=== PATIENT | female | born 1975 | race Caucasian/White ===

== ENCOUNTER 2017-02-14 06:33 | Outpatient (CLI) | payer BC ==
[2017-02-14] VITALS (13 sets, daily range): BP systolic 99–188; BP diastolic 44–66; BMI 26.4
[2017-02-14 07:09] LABS: BASOPHILS 0.4 % (0-2); EOSINOPHILS 0.9 % (0-7); HEMATOCRIT 24.5 % (36.0-48.0); HEMOGLOBIN 8.3 g/dL (12-16); IMMATURE GRANULOCYTES 0.3 % (0-5); LYMPHOCYTES 22.1 % (15-50); MCH 30.2 pg (26.0-34.0); MCHC 33.9 g/dL (31.0-37.0); MCV 89.1 fL (80.0-100.0); MEAN PLATELET VOLUME 10.1 fL (7.4-10.4); MONOCYTES 4.3 % (2-11); PLATELET COUNT 216 10x3/uL (130-400); RBC 2.75 10x6/uL (4.00-5.40); RDW 13.1 % (11.5-14.5); WBC 6.8 10x3/uL (4.8-10.8)
[2017-02-14 07:19] LABS: APTT 31.4 SECONDS (22.8-39.4); INR 0.97 (0.85-1.17); PROTIME 12.7 SECONDS (11.6-15.0)
[2017-02-14 07:20] LABS: ANION GAP 16.3 mmol/L (8-16); CALCIUM 9.1 mg/dL (8.5-10.1); CARBON DIOXIDE 17.7 mmol/L (21.0-32.0)
[2017-02-14] MEDS ORDERED: SODIUM BICARBO325 MG PO (08:27)
[2017-02-14 08:40] LABS: HCG URINE NEGATIVE (NEGATIVE)
--- NOTE | 2017-02-14 10:15 | NUR ---
PT RECEIVED TO ROOM FROM PROCEDURE. RR EVEN AND UNLABORED, PT ALERT AND ORIENTED. VSS, PLACED ON FREQUENT VS. RIGHT SIDE DRESSING CDI. PT REQUESTING TO HAVE SOMETHING TO DRINK. WILL GIVE AND CTM. FAMILY AT BEDSIDE.
--- NOTE | 2017-02-14 10:38 | NUR ---
EDUCATED PT ON USING HAT EVERY TIME SHE VOIDS AND CALLING ME WHEN SHE DOES. EXPLAINED THAT WE NEED A SAMPLE FROM EACH VOID. PT VERBALIZED UNDERSTANDING.
--- NOTE | 2017-02-14 11:15 | NUR ---
PTS VS HAVE REMAINED STABLE SINCE PROCEDURE. RR EVEN AND UNLABORED. DRESSING CITE CDI.
[2017-02-14 11:41] LABS: BASOPHILS 0.3 % (0-2); EOSINOPHILS 0.9 % (0-7); HEMATOCRIT 23.3 % (36.0-48.0); HEMOGLOBIN 7.9 g/dL (12-16); IMMATURE GRANULOCYTES 0.1 % (0-5); LYMPHOCYTES 27.1 % (15-50); MCH 30.3 pg (26.0-34.0); MCHC 33.9 g/dL (31.0-37.0); MCV 89.3 fL (80.0-100.0); MEAN PLATELET VOLUME 10.3 fL (7.4-10.4); NEUTROPHILS 67.6 % (40-80); PLATELET COUNT 202 10x3/uL (130-400); RBC 2.61 10x6/uL (4.00-5.40); WBC 6.8 10x3/uL (4.8-10.8)
--- NOTE | 2017-02-14 16:30 | NUR ---
PTS FREQUENT VS COMPLETE. DRESSING REMAINED CDI AND VSS. PT DENIES PAIN AT SITE, REPORTING "IT ONLY HURTS WHEN I LAUGH." WILL CTM.
[2017-02-14 16:52] LABS: BASOPHILS 0.5 % (0-2); HEMATOCRIT 23.1 % (36.0-48.0); HEMOGLOBIN 7.7 g/dL (12-16); IMMATURE GRANULOCYTES 0.2 % (0-5); LYMPHOCYTES 32.7 % (15-50); MCH 30.2 pg (26.0-34.0); MCHC 33.3 g/dL (31.0-37.0); MCV 90.6 fL (80.0-100.0); MEAN PLATELET VOLUME 10.2 fL (7.4-10.4); MONOCYTES 5.4 % (2-11); NEUTROPHILS 60.2 % (40-80); PLATELET COUNT 198 10x3/uL (130-400); RBC 2.55 10x6/uL (4.00-5.40); RDW 13.1 % (11.5-14.5); WBC 5.9 10x3/uL (4.8-10.8)
--- NOTE | 2017-02-14 18:30 | NUR ---
PT RESTING QUIELTY, RR EVEN AND UNLABORED. FAMILY AT BEDSIDE, WILL GIVE REPORT ON PT CONDTION FOR THE DAY.
--- NOTE | 2017-02-14 19:56 | NUR ---
PT IN BED RESTING QUIETLY. DENIES ANY PAIN OR NEEDS AT THIS TIME. DRSG ON R FLANK CLEAN AND DRY. BED IN LOW POSITION, CALL LIGHT WITHIN REACH. WILL CTM.
[2017-02-14 22:44] LABS: BASOPHILS 0.3 % (0-2); HEMATOCRIT 21.2 % (36.0-48.0); IMMATURE GRANULOCYTES 0.2 % (0-5); LYMPHOCYTES 40.7 % (15-50); MCH 30.4 pg (26.0-34.0); MCV 89.5 fL (80.0-100.0); MEAN PLATELET VOLUME 9.2 fL (7.4-10.4); MONOCYTES 4.8 % (2-11); PLATELET COUNT 174 10x3/uL (130-400); RBC 2.37 10x6/uL (4.00-5.40); RDW 13.3 % (11.5-14.5)
[2017-02-14 22:48] LABS: HEMOGLOBIN 7.2 g/dL (12-16)
--- NOTE | 2017-02-14 23:24 | NUR ---
RCVD CALL FROM LAB THAT PT HAD CRITICAL HGB LEVEL OF 7.2. CALLED AND SPOKE WITH NURSE PRACTITIONER ALLAN. SHE STATED TO GET A TYPE AND CROSS AND INFUSE ONE UNIT.
[2017-02-15] VITALS: BP 123/59
--- NOTE | 2017-02-15 01:45 | NUR ---
STARTED PRBC. INFUSING AT 100ML/HR. VSS. WILL CTM.
--- NOTE | 2017-02-15 01:50 | NUR ---
STARTING INFUSING PRBC. PT STATED HER IV WAS BURNING. REMOVED IV AND RESITED TO RIGHT WRIST. 20G. ONE ATTEMPT. PRBC INFUSING NOW. PT DENIES ANY BURNING OR PAIN. WILL CTM.
--- NOTE | 2017-02-15 03:10 | NUR ---
PRBC INFUSING. TURNED UP TO 125 ML/HR. PT BREATHING EVEN AND UNLABORED. DENIES ANY PAIN OR NEEDS AT THIS TIME. VSS. BED IN LOW POSITION, CALL LIGHT WITHIN REACH. WILL CTM.
[2017-02-15 04:00] VITALS: BP 105/58
--- NOTE | 2017-02-15 04:13 | NUR ---
PT IN BED RESTING QUIETLY. PRBC INFUSING AT 125 ML/HR. BREATHING EVEN AND UNLABORED. DENIES ANY PAIN OR NEEDS AT THIS TIME. BED IN LOW POSITION, CALL LIGHT WITHIN REACH.
--- NOTE | 2017-02-15 04:30 | NUR ---
PRBC DONE IN FUSING. PT BREATHING EVEN AND UNLABORED. SALINE LOCKED. DENIES ANY PAIN OR DISCOMFORT. BED IN LOW POSITION, CALL LIGHT WITHIN REACH. WILL CPOC.
[2017-02-15 05:09] LABS: BASOPHILS 0.3 % (0-2); EOSINOPHILS 0.7 % (0-7); HEMATOCRIT 24.4 % (36.0-48.0); HEMOGLOBIN 8.3 g/dL (12-16); IMMATURE GRANULOCYTES 0.1 % (0-5); LYMPHOCYTES 23.2 % (15-50); MCH 30.3 pg (26.0-34.0); MCV 89.1 fL (80.0-100.0); MEAN PLATELET VOLUME 10.3 fL (7.4-10.4); NEUTROPHILS 71.7 % (40-80); PLATELET COUNT 179 10x3/uL (130-400); RBC 2.74 10x6/uL (4.00-5.40); RDW 13.4 % (11.5-14.5); WBC 6.8 10x3/uL (4.8-10.8)
[2017-02-15 05:25] LABS: ANION GAP 15.5 mmol/L (8-16); CALCIUM 8.6 mg/dL (8.5-10.1); CARBON DIOXIDE 18.4 mmol/L (21.0-32.0); CREATININE - SERUM 4.4 mg/dL (0.6-1.3)
[2017-02-15 05:28] LABS: POTASSIUM - SERUM 2.9 mmol/L (3.5-5.1)
--- NOTE | 2017-02-15 05:41 | NUR ---
RCVD CALL FROM LAB ABOUT CRITICAL LAB VALUE. POTASSIUM 2.9. PAGED ALLAN HUMMEL APN. AWAITING CALL BACK. WILL CTM.
--- NOTE | 2017-02-15 05:56 | NUR ---
RCVD CALL BACK FROM ALLAN HUMMEL R/T THE CRITICAL POTASSIUM. SHE STATED GIVE THE PT 40 MEQ K-DUR PO Q4 HRS X3.
--- NOTE | 2017-02-15 07:30 | NUR ---
REPORT RECEIVED. RR EVEN AND UNLABORED, FAMILY AT BEDSIDE. PT DENIES NEEDS AT THIS TIME. ASSESSMENT PERFORMED, WILL CTM.
[2017-02-15 08:39] VITALS: BP 104/67
[2017-02-15] MEDS ORDERED: SODIUM BICARBO325 MG PO (09:44)
[2017-02-15] MEDS ORDERED: K-DUR20 MEQ PO (09:45)
--- NOTE | 2017-02-15 10:30 | NUR ---
PT DISCHARGED. PROVIDED D/C INSTRUCTIONS TO PT AND FAMILY, PT SIGNED AND VERBALIZED UNDERSTANDING. IV CATHTER REMOVED WITH CATHETER TIP INTACT. DRESSING APPLIED. PT DENIES FURTHER QUESTIONS. PRESCIPTIONS CALLED IN TO [facility]. DENIES FURTHER QUESTIONS AND NEEDS. WILL BE LEAVING WITH FAMILY MEMBER IN PERSONAL VEHICHLE.
== END 2017-02-15 10:38 | disposition home or self-care (01) ==
LOC: D.OPS 06:33 → D.RAD 09:00 → D.M2 10:14 → D.OPS 02-15 10:38
PROVIDERS: Internal Medicine Nephrology; Radiology Diagnostic Radiology
DX: N18.5 Chronic kidney disease, stage 5 (principal); R80.9 Proteinuria, unspecified

== ENCOUNTER → 2018-09-07 08:22 | Outpatient (CLI) | payer BC, MEDICARE ==
[2017-02-14 12:28] VITALS: BMI 26.4
[~2018-09-07 08:22] MED LIST: K-DUR20 MEQ PO; SODIUM BICARBO325 MG PO
[2018-09-07 09:14] LABS: BASOPHILS 0.3 % (0-2); EOSINOPHILS 0.8 % (0-7); HEMATOCRIT 37.2 % (36.0-48.0); HEMOGLOBIN 12.3 g/dL (12-16); IMMATURE GRANULOCYTES 0.5 % (0-5); LYMPHOCYTES 8.6 % (15-50); MCH 30.6 pg (26.0-34.0); MCHC 33.1 g/dL (31.0-37.0); MCV 92.5 fL (80.0-100.0); MEAN PLATELET VOLUME 10.4 fL (7.4-10.4); MONOCYTES 11.4 % (2-11); NEUTROPHILS 78.4 % (40-80); RBC 4.02 10x6/uL (4.00-5.40); RDW 11.9 % (11.5-14.5); WBC 3.9 10x3/uL (4.8-10.8)
[2018-09-07 09:16] LABS: PLATELET COUNT 217 10x3/uL (130-400)
[2018-09-07 09:17] LABS: APPEARANCE CLEAR (CLEAR); COLOR YELLOW (YELLOW); GLUCOSE 50 mg/dL (NEGATIVE); KETONE NEGATIVE (NEGATIVE); NITRITE NEGATIVE (NEGATIVE); PROTEIN NEGATIVE (NEGATIVE); SPECIFIC GRAVITY 1.005 (1.005-1.020); UROBILINOGEN NORMAL (NORMAL)
[2018-09-07 09:18] LABS: BILIRUBIN NEGATIVE (NEGATIVE)
[2018-09-07 09:38] LABS: ALBUMIN 4.1 g/dL (3.4-5.0); ANION GAP 12.7 mmol/L (8-16); BILIRUBIN - TOTAL 0.38 mg/dL (0.2-1.3); CALCIUM 9.1 mg/dL (8.5-10.1); CARBON DIOXIDE 24.5 mmol/L (21.0-32.0); MAGNESIUM - SERUM 1.6 mg/dL (1.8-2.4); POTASSIUM - SERUM 5.2 mmol/L (3.5-5.1)
[2018-09-09 12:12] LABS: TACROLIMUS - LABCORP 6.2 ng/mL (2.0-20.0)
[2018-09-09 13:12] LABS: BK QUANTITATION PCR (URINE) Negative (Negative)
== END | disposition home or self-care (01) ==
LOC: D.LAB 08:22
PROVIDERS: ATTEND Surgery
DX: Z94.0 Kidney transplant status (principal); Z79.52 Long term (current) use of systemic steroids; D89.9 Disorder involving the immune mechanism, unspecified

== ENCOUNTER → 2018-09-15 08:21 | Outpatient (CLI) | payer BC, MEDICARE ==
[2017-02-14 12:28] VITALS: BMI 26.4
[2018-09-15 09:18] LABS: HEMATOCRIT 35.3 % (36.0-48.0); HEMOGLOBIN 12.1 g/dL (12-16); LYMPHOCYTES 1.9 % (15-50); MCH 31.3 pg (26.0-34.0); MCHC 34.3 g/dL (31.0-37.0); MCV 91.5 fL (80.0-100.0); MEAN PLATELET VOLUME 9.7 fL (7.4-10.4); NEUTROPHILS 86.6 % (40-80); PLATELET COUNT 197 10x3/uL (130-400); RBC 3.86 10x6/uL (4.00-5.40); RDW 12.3 % (11.5-14.5); WBC 5.1 10x3/uL (4.8-10.8)
[2018-09-15 09:22] LABS: ALBUMIN 3.8 g/dL (3.4-5.0); ANION GAP 14.2 mmol/L (8-16); BILIRUBIN - TOTAL 0.42 mg/dL (0.2-1.3); CALCIUM 8.9 mg/dL (8.5-10.1); CARBON DIOXIDE 23.8 mmol/L (21.0-32.0); MAGNESIUM - SERUM 1.5 mg/dL (1.8-2.4); PHOSPHOROUS 2.8 mg/dL (2.5-4.9); PROTEIN - SERUM 6.7 g/dL (6.4-8.2)
[2018-09-15 10:30] LABS: APPEARANCE CLEAR (CLEAR); BILIRUBIN NEGATIVE (NEGATIVE); COLOR YELLOW (YELLOW); GLUCOSE 50 mg/dL (NEGATIVE); KETONE NEGATIVE (NEGATIVE); NITRITE NEGATIVE (NEGATIVE); PROTEIN NEGATIVE (NEGATIVE); UROBILINOGEN NORMAL (NORMAL)
[2018-09-15 10:31] LABS: BACTERIA MODERATE /hpf (NONE SEEN); EPITHELIAL CELLS 0-5 /hpf (0-5); MUCUS <1+ /lpf (NONE SEEN); WHITE CELLS - URINE OCC /hpf (0-5)
[2018-09-17 16:10] LABS: BK QUANTITATION PCR (URINE) Negative (Negative)
[2018-09-17 22:06] LABS: TACROLIMUS - LABCORP 5.7 ng/mL (2.0-20.0)
== END | disposition home or self-care (01) ==
LOC: D.LAB 08:21
PROVIDERS: ATTEND Internal Medicine
DX: Z94.0 Kidney transplant status (principal)

== ENCOUNTER → 2018-09-21 05:49 | Outpatient (CLI) | payer BC, MEDICARE ==
[2017-02-14 12:28] VITALS: BMI 26.4
[2018-09-21 06:28] LABS: BASOPHILS 0.3 % (0-2); EOSINOPHILS 1.9 % (0-7); HEMOGLOBIN 11.6 g/dL (12-16); IMMATURE GRANULOCYTES 0.3 % (0-5); LYMPHOCYTES 4.9 % (15-50); MCHC 33.1 g/dL (31.0-37.0); MCV 90.4 fL (80.0-100.0); MEAN PLATELET VOLUME 10.1 fL (7.4-10.4); MONOCYTES 7.6 % (2-11); PLATELET COUNT 202 10x3/uL (130-400); RBC 3.87 10x6/uL (4.00-5.40); RDW 12.2 % (11.5-14.5); WBC 3.7 10x3/uL (4.8-10.8)
[2018-09-21 06:43] LABS: ALBUMIN 3.8 g/dL (3.4-5.0); ANION GAP 14.2 mmol/L (8-16); BILIRUBIN - TOTAL 0.68 mg/dL (0.2-1.3); CALCIUM 8.8 mg/dL (8.5-10.1); CARBON DIOXIDE 24.5 mmol/L (21.0-32.0); MAGNESIUM - SERUM 1.5 mg/dL (1.8-2.4); PHOSPHOROUS 3.5 mg/dL (2.5-4.9); POTASSIUM - SERUM 4.7 mmol/L (3.5-5.1); PROTEIN - SERUM 6.9 g/dL (6.4-8.2)
[2018-09-21 07:29] LABS: APPEARANCE HAZY (CLEAR); BILIRUBIN NEGATIVE (NEGATIVE); COLOR YELLOW (YELLOW); GLUCOSE 100 mg/dL (NEGATIVE); KETONE NEGATIVE (NEGATIVE); NITRITE NEGATIVE (NEGATIVE); PROTEIN NEGATIVE (NEGATIVE); SPECIFIC GRAVITY 1.015 (1.005-1.020); UROBILINOGEN NORMAL (NORMAL)
== END | disposition home or self-care (01) ==
LOC: D.LAB 05:49
PROVIDERS: ATTEND Internal Medicine Nephrology
DX: Z94.0 Kidney transplant status (principal)